=== PATIENT | male | born 1935 | race Caucasian/White ===

== ENCOUNTER 2020-01-04 14:50 | Emergency (ER) | payer MEDICARE, OTHER ==
[~2020-01-04] VITALS: Ht 172.7 cm; Wt 68.9 kg
--- NOTE | 2020-01-04 15:13 | NUR ---
BIB DAUGHTER FROM HOME FOR WORSENING GENERALIZED WEAKNESS x 3WEEKS. TO ER BED 4, HOOKED TO BP CUFF AND POX, VSS. CHANGED TO HOSP GOWN, WARM BLANKET PROVIDED, PATIENT AAO x 4, BREATHING EVEN AND UNLABORED. AWAITING MD DOWNEY
--- NOTE | 2020-01-04 15:22 | NUR ---
DR PINEDA AT BEDSIDE
[2020-01-04] MEDS ORDERED: IV NS 0.9% 1,000 ML BAG IV ONE (15:30)
[2020-01-04 15:47] LABS: BASOPHILS % (AUTO) 0.4 % (0.0-2.0); EOSINOPHILS % (AUTO) 1.5 % (0.0-6.0); HEMATOCRIT 46 % (39-51); HEMOGLOBIN 14.6 g/dL (13.5-17.5); LYMPHOCYTES # (AUTO) 1.5 /CMM (0.8-4.8); MEAN CORPUSCULAR HGB CONC 32 g/dl (31.0-36.0); MEAN CORPUSCULAR VOLUME 80 fL (80-96); MONOCYTES # (AUTO) 1.2 /CMM (0.1-1.30); NEUTROPHILS # (AUTO) 9.5 /CMM (1.8-8.9); NEUTROPHILS % (AUTO) 76.1 % (43.0-81.0); PLATELET COUNT (AUTO) 286 /CMM (150-450); RED BLOOD CELL COUNT(AUTO) 5.77 MIL/uL (4.5-6.0); WHITE BLOOD COUNT (AUTO) 12.5 K/uL (4.3-11.0)
[2020-01-04 15:53] LABS: CALCIUM, SERUM 9.4 mg/dL (8.5-10.1); CARBON DIOXIDE 25 mmol/L (21-32); CHLORIDE 100 mmol/L (98-107); CREATININE 0.8 mg/dL (0.6-1.3); GLUCOSE 245 mg/dL (74-106); POTASSIUM 4.5 mmol/L (3.5-5.1); SODIUM SERUM 134 mmol/L (136-145); UREA NITROGEN, BLOOD 23 mg/dL (7-18)
[2020-01-04] MEDS ORDERED: MIRT15TA7 PO (15:57)
[2020-01-04] MEDS ORDERED: FINA5TAB11 PO (15:57)
[2020-01-04] MEDS ORDERED: ATOR20TA PO (15:57)
[2020-01-04] MEDS ORDERED: RISP1TAB27 PO (15:57)
[2020-01-04] MEDS ORDERED: NATE120T6 PO (15:57)
[2020-01-04] MEDS ORDERED: TAMS-12 PO (15:57)
[2020-01-04] MEDS ORDERED: CANA100T PO (15:57)
[2020-01-04] MEDS ORDERED: METO50TA16 PO (15:57)
[2020-01-04] MEDS ORDERED: CHOL500052 PO (15:57)
[2020-01-04 16:05] LABS: ALANINE AMINOTRANSFERASE 18 U/L (12-78); ALBUMIN 2.9 g/dL (3.4-5.0); ALKALINE PHOSPHATASE 71 U/L (46-116); ASPARTATE AMINOTRANSFERASE 13 U/L (15-37); BILIRUBIN,DIRECT 0.1 mg/dL (0.0-0.2); BILIRUBIN,TOTAL 0.3 mg/dL (0.2-1.0); TOTAL PROTEIN, SERUM 7.3 g/dL (6.4-8.2)
[2020-01-04 17:32] VITALS: BP 137/64
--- NOTE | 2020-01-04 17:39 | NUR ---
Patient does not wish to proceed with medical care recommended by Dr. PINEDA. Patient given information related to possible complications, up to and including , which could occur as a result of leaving the hospital at this time. Patient verbalizes understanding of risks involved due to leaving against medical advice. Patient has signed AMA form. Left with daughter.
== END 2020-01-04 17:45 | disposition left against medical advice (07) ==
LOC: ER 14:58
DX: R53.1 Weakness (principal); D72.829 Elevated white blood cell count, unspecified; I10 Essential (primary) hypertension; E11.65 Type 2 diabetes mellitus with hyperglycemia; Z95.1 Presence of aortocoronary bypass graft; Z95.2 Presence of prosthetic heart valve; E78.00 Pure hypercholesterolemia, unspecified; N40.0 Benign prostatic hyperplasia without lower urinary tract symptoms; Z20.828 Contact with and (suspected) exposure to other viral communicable diseases; F03.90 Unspecified dementia, unspecified severity, without behavioral disturbance, psychotic disturbance, mood disturbance, and anxiety
CPT/HCPCS: 36415; 71045; 80048; 80076; 84484; 85025; 87081; 87426; 93005; 96360; 99285; J7030; C9803